=== PATIENT | male | born 2000 | race Caucasian/White ===

== ENCOUNTER 2020-06-07 08:26 | Emergency (ER) | payer MEDICAID, SELFPAY ==
[2020-06-07 08:37] VITALS: BP 137/58; PULSE 97; RESP 18; TEMP 36.6; O2SAT 100; BMI 19.1
--- NOTE | 2020-06-07 08:39 | HMH.EDGENADL ---
ED Disposition Clinical Impression: Tinea pedis Qualifiers: Laterality: left Qualified Code(s): B35.3 - Tinea pedis Disposition: Home, Self-Care Condition on Discharge: Good Instructions: DI for Athlete's Foot Additional Instructions: Use cream twice daily. Keep feet clean and dry. Change your socks frequently. Prescriptions: Clotrimazole 1 applicatio TP BID 14 Days cream..g. Prescription Printed Referrals: PCP,No [Primary Care Provider] - Time of Disposition: 08:44 - Critical Care Critical Care Time: No Attestation: On 06/07/20, the high probability of a clinically significant, sudden or life threatening deterioration of the following system(s) required my full and direct attention, intervention and personal management. The time I documented below is in addition to time spent performing reported procedures but includes the following listed in this critical care notation. Medical Decision Making - Medical Records Medical records reviewed: Yes: I reviewed the patient's medical records. - Jan Inquiry Pt receiving controlled substance: No Medical Decision Narrative: In summary this is a 20-year-old male presenting to the emergency department with a painful rash between the toes of his left foot. Presentation is most consistent with tinea pedis. No systemic signs of illness. No changes to the nails. Patient recommended to use clotrimazole twice daily. Keep skin dry. Follow-up with PCP. General Adult HPI - General Stated complaint: toe on left foot infected Time Seen by Provider: 06/07/20 08:45 - History of Present Illness HPI narrative: 20-year-old male presenting to the emergency department with a painful rash between the toes of his left foot. Symptoms started about 2 weeks ago. He has been using soap and water frequently. Yesterday it became more painful, sharp and burning. No change in his nails. No other concerns. No fevers, chills, nausea, vomiting. No pain in the rest of his foot or lower leg. - Related Data Previous Rx's Medication Instructions Recorded Azithromycin [Z-Julito 250mg Tab*] 250 mg PO UD DOSE PK #6 tab 11/05/18 Fluticasone Propionate [Flonase 2 spr NS DAILY #1 bottle 11/05/18 50mcg nasal spray 16gm] predniSONE [Prednisone 5mg Tab 5 mg PO UD DOSE PK #21 pack 11/05/18 Dose-Pack] Clotrimazole 1 applicatio TP BID 14 Days 06/07/20 cream..g. Allergies Allergy/AdvReac Type Severity Reaction Status Date / Time No Known Allergies Allergy Verified 11/05/18 19:20 [facility] History - Hepatitis A Screen Attestation statement:: This patient has been screened for Hepatitis A risk factors. - Social History Smoking Status: Current every day smoker Tobacco Type: cigarettes Alcohol Intake: never Occupational Status: unemployed ROS Obtained: Yes All systems reviewed & no additional complaints - Constitutional Constitutional: Denies chills, Denies fever(s) - Cardiovascular Cardiovascular: Denies chest pain, Denies palpitations - Gastrointestinal Gastrointestingal: Denies: abdominal pain, vomiting - Musculoskeletal Musculoskeletal: Denies joint stiffness, Denies joint swelling - Integumentary/Breasts Skin/Breast: Reports dry skin, Reports lesions, Reports itching, Reports rash - Neurologic Neurologic: Denies headache(s), Denies numbness Physical Exam - General General appearance: alert, in no apparent distress - Head Head exam: atraumatic, normocephalic - Respiratory Respiratory exam: Present: normal lung sounds bilaterally. Absent: respiratory distress, wheezes - Cardiovascular Cardiovascular exam: Present: regular rate, normal rhythm - Abdominal Exam Abdominal exam: Present: soft. Absent: distention - Expanded Lower Extremity Exam Left Foot/toe exam: Present: other (Erythema and dry cracking skin between the toes of the left foot, worse between the fourth and fifth toes. No rash on the bottom of the foot. No rash on the to
[2020-06-07 08:58] VITALS: BP 137/58; PULSE 97; RESP 18; TEMP 36.6; O2SAT 100
== END 2020-06-07 09:00 | disposition home or self-care (01) ==
PROVIDERS: Emergency Provider Emergency Medicine
DX: B35.3 Tinea pedis (principal); F17.210 Nicotine dependence, cigarettes, uncomplicated
CPT/HCPCS: 99281

== ENCOUNTER 2021-10-23 19:34 | Emergency (ER) | payer MEDICAID, SELFPAY ==
[2021-10-23 19:34] VITALS: BP 149/78; PULSE 100; RESP 18; TEMP 36.8; O2SAT 99; BMI 19.2
[2021-10-23 20:10] VITALS: BP 134/68; PULSE 90; RESP 20; TEMP 36.8; O2SAT 99
== END 2021-10-23 20:15 | disposition left against medical advice (07) ==
PROVIDERS: Emergency Provider Emergency Medicine
DX: Z53.21 Procedure and treatment not carried out due to patient leaving prior to being seen by health care provider (principal)
CPT/HCPCS: 99211

== ENCOUNTER 2021-10-26 09:35 | Emergency (ER) | payer MEDICAID, SELFPAY ==
[2021-10-26 11:03] VITALS: BP 141/81; PULSE 90; RESP 19; TEMP 36.9; O2SAT 99; BMI 20.3
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
--- NOTE | 2021-10-26 11:42 | XR_ITS ---
FINAL REPORT CLINICAL HISTORY: PAIN FINDINGS: RIGHT FEMUR Two views demonstrate no acute fracture or dislocation. The joint spaces appear normal. The visualized bony structures are well aligned. No soft tissue abnormality is seen. IMPRESSION: No acute process. Reviewed, Interpreted and Dictated by Dexter Kenny III, MD Transcribed by Paula Sanchez Authenticated by Dexter Kenny III, MD on 10/26/2021 12:50:26 PM [facility]
[2021-10-26 12:45] VITALS: BP 141/81; PULSE 90; RESP 19; TEMP 36.9
== END 2021-10-26 12:46 | disposition home or self-care (01) ==
PROVIDERS: Emergency Provider Nurse Practitioner
DX: S76.311A Strain of muscle, fascia and tendon of the posterior muscle group at thigh level, right thigh, initial encounter (principal); X50.0XXA Overexertion from strenuous movement or load, initial encounter; Y92.89 Other specified places as the place of occurrence of the external cause; F17.210 Nicotine dependence, cigarettes, uncomplicated
CPT/HCPCS: 73552; 96372; 99202; G0463

== ENCOUNTER 2023-11-10 19:46 | Emergency (ER) | payer SELFPAY ==
[2023-11-10] VITALS (21 sets, daily range): BP systolic 128–167; BP diastolic 68–98; PULSE 89–111; RESP 10–22; TEMP 36.7–36.8; O2SAT 97–100; BMI 19.2
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
[2023-11-10 19:59] LABS: MANUAL DIFFERENTIAL MANUAL DIFFERENTIAL (MANUAL DIFF)
[2023-11-10] MEDS: LACTATED RINGERS 1000ML 1,000 ML 999 ML IV (20:00)
[2023-11-10 20:04] LABS: Chloride 103 mmol/L (98-107); Potassium 3.5 mmoL/L (3.5-5.1); Sodium 137 mmol/L (136-145)
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
[2023-11-10 20:05] LABS: Basophils # 0.1 K/mm3 (0-0.2); Basophils % 0.5 % (0.1-2.0); Eosinophils # 0.2 K/mm3 (0.0-0.4); Eosinophils % 1.5 % (0.1-12.0); Hematocrit 43.2 % (42.0-52.0); Hemoglobin 15.8 g/dL (14.1-18.0); Lymphocytes # 3.1 K/mm3 (0.7-4.5); Lymphocytes % 19.8 % (10-50); Mean Corpuscular HGB Conc 36.6 g/dL (31.8-35.4); Mean Corpuscular Hemoglobin 34.1 pg (27.0-31.2); Mean Corpuscular Volume 93.1 fl (80-94); Mean Platelet Volume 9.5 fl (7.4-10.4); Monocytes # 0.9 K/mm3 (0.1-1.0); Monocytes % 5.9 % (1.7-9.3); Neutrophils # 11.5 K/mm3 (1.8-7.8); Neutrophils % 72.4 % (37.0-80.0); Platelet Count 149 K/mm3 (142-424); Red Blood Count 4.65 M/mm3 (4.60-6.20); Red Cell Distribution Width 13.2 % (11.5-17.5); White Blood Count 15.9 K/mm3 (4.8-10.8)
[2023-11-10 20:07] LABS: Alanine Aminotransferase 93 U/L (12-78); Albumin Level 4.6 g/dl (3.5-5.0); Albumin/Globulin Ratio 1.6 (1.1-1.8); Alkaline Phosphatase 59 U/L (38-126); Anion Gap 11.5 mEq/L (5-15); Aspartate Amino Transferase 118 U/L (17-59); Bilirubin,Total 0.5 mg/dl (0.2-1.3); Blood Urea Nitrogen 11 mg/dl (9-20); Carbon Dioxide 26 mmol/L (22.0-30.0); Creatinine Clearance Estimated 123 mL/min (50-200); Estimated Glomerular Filt Rate 105 ml/min (>60); GFR (African American) 127 ML/MIN (>60); Globulin 2.9 g/dL (1.3-3.2); Total Protein,Serum 7.5 g/dl (6.3-8.2)
[2023-11-10 20:08] LABS: Glucose 104 mg/dl (74-100)
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
--- NOTE | 2023-11-10 20:14 | PC.NURSE ---
Primary assessment: Airway intact Breathing even and unlabored,without pain Capillary refill <3, pulses 2+ upper and lower extremities. Abrasion to left mandaen, laceration to left eye outside corner, abrasion to left arm, left knee abrasion noted. Lung sounds clear upper and lower left lobes. Noted diminished to right throughout. Abdomen, soft, non-tender. Positive bowel sounds all 4 quadrants. Pelvis stable. Patient denies tenderness in extremities. 194 FSBG 103 [id number] radiology, chest, pelvis, left wrist and forearm obtained 2007 c-collar cleared by Dr. Yip 2009 Trauma alert cancelled at this time.
[2023-11-10] MEDS: MORPHINE 4MG/ML SYRINGE 4 MG IV (20:20)
[2023-11-10] MEDS: ONDANSETRON 4MG/2ML VIAL 4 MG IV (20:20)
[2023-11-10] MEDS: TET/DIPHTH/PERT-ADULT 0.5ML SYRINGE 0.5 ML IM (20:21)
[2023-11-10 20:36] LABS: Eosinophils % 1 % (0-3); Lymphocytes % 22 % (10-50); Monocytes % 1 % (2-9); Neutrophils % 76 % (42-76); Platelet Estimate Normal; RBC Morphology Normal; Total Cells Counted 100
[2023-11-10] MEDS: 0.9 % SODIUM CHLORIDE 50 ML VIAL IV ×2 (20:44)
[2023-11-10] MEDS: IOPAMIDOL-370 (76%);100ML BOTTLE 100 ML IV (20:44)
[2023-11-10] MEDS: SODIUM CHLORIDE 0.9% 10ML SYR (RAD ONLY) 10 ML IV ×2 (20:44)
[2023-11-10] MEDS: IOPAMIDOL-370 (76%);100ML BOTTLE 70 ML IV (20:45)
--- NOTE | 2023-11-10 22:46 | PC.NURSE ---
Weight on arm removed by Dr. Yip. Left arm in finger trap. Preparing for reduction.
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
--- NOTE | 2023-11-10 22:54 | PC.NURSE ---
Splint and brigette wrap applied by Dr. Yip at this time.
--- NOTE | 2023-11-10 22:58 | PC.NURSE ---
Xrays obtained to review reduction, Dr. Yip reviewed.
--- NOTE | 2023-11-10 23:01 | PC.NURSE ---
Dr. Yip out at this time. Patient is arousable, on room air at this time. Will remain at bedside until patient is recovered.
--- NOTE | 2023-11-10 23:05 | PC.NURSE ---
Patient alert and oriented to person, place, time, and situation. Patient is on room air, vitals are stable at this time. Concluding sedation at this time.
[2023-11-10] MEDS: HYDROCODONE/APAP 5/325 MG TABLET 1 TAB PO (23:39)
== END 2023-11-10 23:55 | disposition still patient (30) ==
PROVIDERS: Emergency Provider Student in an Organized Health Care Education/Training Program
DX: S52.502A Unspecified fracture of the lower end of left radius, initial encounter for closed fracture (principal); S52.602A Unspecified fracture of lower end of left ulna, initial encounter for closed fracture; S00.03XA Contusion of scalp, initial encounter; V49.50XA Passenger injured in collision with unspecified motor vehicles in traffic accident, initial encounter; F17.210 Nicotine dependence, cigarettes, uncomplicated
CPT/HCPCS: 25605; 99152; 70450; 70496; 70498; 71045; 71275; 72125; 72128; 72131; 72190; 73090; 73110; 74174; 80053; 85007; 85014; 85018; 85048; 85049; 90471; 90715; 96361; 96374; 96375; 99291; J2405; Q9967

== ENCOUNTER 2023-11-23 20:58 | Emergency (ER) | payer OTHER, SELFPAY ==
[2023-11-23 22:08] VITALS: BP 135/72; PULSE 65; RESP 19; TEMP 36.8; O2SAT 98; BMI 19.2
[2023-11-23 22:30] VITALS: BP 119/76; PULSE 85; O2SAT 98
[2023-11-23 23:00] VITALS: BP 123/75; PULSE 83; O2SAT 98
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
--- NOTE | 2023-11-23 23:07 | PC.NURSE ---
assisted to bathroom, pt back in room
--- NOTE | 2023-11-23 23:15 | XR_ITS ---
PROCEDURE INFORMATION: Exam: XR Left Wrist Exam date and time: 11/23/2023 11:22 PM Age: 23 years old Clinical indication: Pain; Wrist; Left; Additional info: Increasing pain, recent FX, in splint TECHNIQUE: Imaging protocol: Radiologic exam of the left wrist. Views: 1 or 2 views. COMPARISON: CR XR WRIST LT MIN 3V 11/10/2023 8:17 PM FINDINGS: Bones/joints: Evaluation of bony detail is limited by radiodense splint. No significant change in distal radius and ulna shaft fractures with angulation apex volar. No dislocation. Similar lateral displacement of the distal fracture fragments by 1 shaft's width. Similar mild override. Soft tissues: Edematous. IMPRESSION: Distal radius and ulna shaft fractures appear similar to the prior study as detailed above, interval application of radiodense splint.
[2023-11-23] MEDS: KETOROLAC 30MG/ML VIAL 30 MG IM (23:22)
[2023-11-23] MEDS: ACETAMINOPHEN 500MG TAB 1000 MG PO (23:23)
[2023-11-23] MEDS: OXYCODONE 5MG IMMEDIATE RELEASE TABLET 5 MG PO (23:23)
--- NOTE | 2023-11-23 23:59 | PC.NURSE ---
positive pulses noted in left radial, cap refill less than 3 seconds
[2023-11-24 00:02] VITALS: BP 123/77; PULSE 95; RESP 16; TEMP 36.7; O2SAT 99
== END 2023-11-24 00:04 | disposition home or self-care (01) ==
PROVIDERS: Emergency Provider Emergency Medicine; PCP Internal Medicine
DX: S52.502A Unspecified fracture of the lower end of left radius, initial encounter for closed fracture (principal); F17.210 Nicotine dependence, cigarettes, uncomplicated; S52.602A Unspecified fracture of lower end of left ulna, initial encounter for closed fracture; V89.2XXA Person injured in unspecified motor-vehicle accident, traffic, initial encounter
CPT/HCPCS: 73100; 96372; 99283

== ENCOUNTER 2023-12-07 09:00 | Day surgery (SDC) | payer MEDICAID, SELFPAY ==
[2023-12-04 17:20] VITALS: BMI 19.2
[2023-12-07] VITALS (10 sets, daily range): BP systolic 124–138; BP diastolic 70–95; PULSE 67–94; RESP 16–18; TEMP 36.4–43; O2SAT 96–100
--- NOTE | 2023-12-07 | XR_ITS ---
FINAL REPORT CLINICAL HISTORY: ORIF .4 fluoro time .60 mgy FINDINGS: FLUOROSCOPY LESS THAN 1 HOUR HISTORY: Fluoroscopy guidance. Fluoroscopic guidance was provided for left wrist ORIF. 2 spot films were obtained. A total of 0.4 minutes of fluoroscopy time were used. Total DAP: 0.60 mGy IMPRESSION: As above. Reviewed, Interpreted and Dictated by Olesya Cardenas MD Transcribed by Marichuy Shah Authenticated and [facility]
--- NOTE | 2023-12-07 09:09 | XR_ITS ---
FINAL REPORT CLINICAL HISTORY: preop order FINDINGS: A single view of the chest was obtained. The patient is rotated to the right. The heart is normal in size. The mediastinum is unremarkable. The lungs are underinflated. There is no active disease. There is no pleural effusion. There is no pneumothorax. There is no acute osseous abnormality. IMPRESSION: No acute cardiopulmonary process. Reviewed, Interpreted and Dictated by Stevo Sue MD Transcribed by Ashley Kelly Authenticated and . [facility]
[2023-12-07] MEDS: LACTATED RINGERS 1000ML 1,000 ML 25 ML IV (09:17)
--- NOTE | 2023-12-07 09:18 | ECG_ITS ---
APPROVED REPORT Exam: Resting ECG HR:92 bpm ECG Measurements Heart Rate 92 AXES SC 130 P 70 QRSd 106 QRS 60 QT 340 T 47 QTc 389 Conclusion SINUS RHYTHM INDETERMINATE AXIS INCOMPLETE RIGHT BUNDLE BRANCH BLOCK [90+ ms QRS DURATION, TERMINAL R IN V1/V2, 40+ ms S IN I/aVL/V4/V5/V6] BORDERLINE ECG UNCONFIRMED REPORT Electronically signed by : Alan Rolon MD 12/08/2023 12:38:14
--- NOTE | 2023-12-07 09:56 | EXP.ANES.CKL ---
[facility] Disclaimer: The information contained in this section may have been updated after the patient was seen, as this information can be updated by other users. Medical History No significant past medical history Surgical History No significant past surgical history Family History Other No significant family history Social History (Updated 12/07/23 @ 09:13 by Delisa Belcher RN) Smoking Status: Current every day smoker tobacco type: cigarettes packs per day: 1 second hand exposure: Yes alcohol intake: never substance use type: denies use current occupational status: unemployed Travel in the last 8 weeks: None [facility] Anesthesia Checklist Patient Identification Patient Identification: Arm Band Structural Data Admitted From: Home Planned Operative Procedure/s: ORIF Left Radius and Ulna Shaft Fractures Consent for Planned Operative Procedure(s) Verified: Yes Verified Documents: Surgical Consent and History and Physical NPO Status Verified Time NPO: 00:00 Additional verifications Anesthesia Reactions: No Hx Blood Transfusions: No Blood Transfusion Reaction: No Airway Assessment Mallampati Score:: Class II C-Spine Mobility Assessed: Yes TMJ Mobility Assessed: Yes Dentition: Poor Dentition Neurological Assessment Level of Consciousness: Awake and Alert Anesthesia Plan Anesthesia Risk discussed: Yes Anesthesia Plan: Verified ASA Class: II Anesthesia Type: General w/block (Left Supraclavicular Nerve Block. Risks/benefits explained. Pt verbalized understanding)
[2023-12-07] MEDS: CEFAZOLIN SODIUM 1 GM in 0.9 % SODIUM CHLORIDE 50 ML IV (11:26)
--- NOTE | 2023-12-07 14:18 | EXP.ANES.I ---
[facility] Anesthesia Record Part I Anesthesia Record I Intake, IV Amount: 1,500 Hydration: Adequate Estimated blood loss (mL): 10 Urine output (mL): 0 Blood Products used (#): none Blood Pressure: 138/95 SaO2: 96 Pulse Rate: 88 Airway Patency: Patent Respiratory Rate: 16 Temperature: 97.6 F Patient is:: Drowsy and Stable Stable to PACU at:: 14:15
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
--- NOTE | 2023-12-07 16:31 | EXP.ANES.II ---
[facility] Anesthesia Record Part II Anesthesia Record Part II Discharge Time: 14:45 Destination: Surgical Day Care (OP Surgery) PACU nurse assessment reviewed?: Yes Patient Condition:: Good Anesthesia Complications:: None Swallowing reflex intact?: Yes Airway Patency: Patent Cyanosis?: No Blood Pressure: 129/82 SaO2: 98 Respiratory Rate: 16 Pulse Rate: 83 Temperature: 97.6 F Mental Status: Alert & Oriented Pain level:: 0 Nausea and/or vomitting:: None Intake, IV Amount: 0 Hydration: Adequate
== END 2023-12-07 15:01 | disposition home or self-care (01) ==
PROVIDERS: PCP Internal Medicine; Visit Provider Orthopaedic Surgery
PROC: (CPT 25575; principal; 2023-12-07 11:15)
DX: S52.392A Other fracture of shaft of radius, left arm, initial encounter for closed fracture (principal); S52.292A Other fracture of shaft of left ulna, initial encounter for closed fracture; V49.59XA Passenger injured in collision with other motor vehicles in traffic accident, initial encounter; W22.12XA Striking against or struck by front passenger side automobile airbag, initial encounter; Y92.413 State road as the place of occurrence of the external cause; F17.210 Nicotine dependence, cigarettes, uncomplicated
CPT/HCPCS: 25575; 71045; 73100; 76000; 93005; 96374; C1713; J2405

== ENCOUNTER 2023-12-18 09:53 | Outpatient (CLI) | payer MEDICAID, SELFPAY ==
--- NOTE | 2023-12-18 10:05 | XR_ITS ---
FINAL REPORT CLINICAL HISTORY: lt wrist fx COMPARISON: 11/23/2023 FINDINGS: Left wrist Three views were obtained. There are interval postoperative changes from ORIF of the distal radius and ulna. Screw plate and multiple screws are present. IMPRESSION: Postsurgical changes. Reviewed, Interpreted and Dictated by Dexter Kenny III, MD Transcribed by Paula Sanchez Authenticated and [facility]
== END 2023-12-18 23:59 ==
LOC: RAD 09:53
PROVIDERS: Visit Provider Orthopaedic Surgery
DX: S52.202A Unspecified fracture of shaft of left ulna, initial encounter for closed fracture (principal); S52.92XA Unspecified fracture of left forearm, initial encounter for closed fracture
CPT/HCPCS: 73110

== ENCOUNTER 2024-01-01 08:31 | Outpatient (CLI) | payer MEDICAID, SELFPAY ==
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
== END 2024-01-01 23:59 ==
LOC: RAD 08:32
PROVIDERS: Visit Provider Orthopaedic Surgery
DX: M25.532 Pain in left wrist (principal); S52.92 Unspecified fracture of left forearm; S52.202K Unspecified fracture of shaft of left ulna, subsequent encounter for closed fracture with nonunion
CPT/HCPCS: 73110

== ENCOUNTER 2024-02-05 10:50 | Outpatient (CLI) | payer MEDICAID, SELFPAY ==
--- NOTE | 2024-02-05 10:58 | XR_ITS ---
FINAL REPORT CLINICAL HISTORY: left fore arm pain COMPARISON: 01/01/2024 FINDINGS: Two images of the left forearm were obtained. The forearm is in a cast which obscures bony detail. There is a sideplate and screws present in both the distal radius and ulna anchoring fractures of the distal radius and ulna, which are stable in appearance since the prior films of December 31. The elbow joint is not well-seen on this exam. There is no soft tissue abnormality identified. IMPRESSION: The hardware present in both the distal radius and ulna anchoring fractures of the distal radius and ulna is stable in appearance since the prior films of December 31. Reviewed, Interpreted and Dictated by Stevo Sue MD Transcribed by Nadege Worley Authenticated and [facility]
--- NOTE | 2024-02-05 10:58 | XR_ITS ---
FINAL REPORT CLINICAL HISTORY: left wrist fx COMPARISON: 12/18/2023 FINDINGS: 3 images of the left wrist were obtained. The films were obtained in a cast which obscures bony detail. There is hardware again noted in the distal radius and ulna as seen on the prior exam of December 17. There is no evidence of fracture or dislocation of the wrist. The joint spaces appear intact. IMPRESSION: No acute bony abnormality of the left wrist. Hardware is again noted in the distal radius and ulna as seen on the prior exam of December 17. Reviewed, Interpreted and Dictated by Stevo Sue MD Transcribed by Nadege Worley Authenticated and [facility]
== END 2024-02-05 23:59 | disposition home or self-care (01) ==
LOC: RAD 10:51
PROVIDERS: Visit Provider Orthopaedic Surgery
DX: M79.632 Pain in left forearm (principal); M25.532 Pain in left wrist; S52.92XA Unspecified fracture of left forearm, initial encounter for closed fracture; S52.202A Unspecified fracture of shaft of left ulna, initial encounter for closed fracture
CPT/HCPCS: 73090; 73110

== ENCOUNTER 2024-02-05 12:33 | Outpatient (RCR) | payer MEDICAID, SELFPAY | END 2024-02-05 13:30 | disposition home or self-care (01) | LOC: OT 12:33 | PROVIDERS: Visit Provider Orthopaedic Surgery | DX: M25.532 Pain in left wrist (principal); S52.92 Unspecified fracture of left forearm; S52.202K Unspecified fracture of shaft of left ulna, subsequent encounter for closed fracture with nonunion | CPT/HCPCS: 97763 ==